=== PATIENT | male | born 1960 | race Caucasian/White ===

== ENCOUNTER 2019-10-18 15:05 | Emergency (ER) | payer SELFPAY ==
[~2019-10-18] VITALS: Ht 170.2 cm; Wt 83.6 kg
[2019-10-18 15:25] VITALS: BP 133/79; TEMP 98.7
[2019-10-18] MEDS ORDERED: TAMIFLU 75MG75 MG PO (16:19)
[2019-10-18 16:20] VITALS: PULSE 76
== END 2019-10-18 16:25 | disposition home or self-care (01) ==
LOC: COL.ER 15:05
DX: J09.X2 Influenza due to identified novel influenza A virus with other respiratory manifestations (principal); I10 Essential (primary) hypertension

== ENCOUNTER 2020-05-16 11:06 | Emergency (ER) | payer SELFPAY ==
[~2020-05-16] VITALS: Ht 177.8 cm; Wt 81.8 kg
[~2020-05-16 11:06] MED LIST: TAMIFLU 75MG75 MG PO
[2020-05-16 11:08] VITALS: TEMP 98
[2020-05-16 11:34] LABS: BASO # 0.1 (0.0-0.2); EOS # 0.2 (0.0-0.7); EOS % 2.6 % (0-4.0); GRAN # 3.5 (1.4-6.5); GRAN % 48.5 % (42.2-75.2); HEMATOCRIT 38.2 % (42.0-52.0); HEMOGLOBIN 12.8 g/dl (13.5-18.0); LYMPH # 2.9 (1.2-3.4); LYMPH % 39.7 % (20.0-51.0); MEAN CELL VOLUME 93 fl (80.0-100.0); MEAN CORPUSCULAR HEMOGLOBIN 31 pg (27.0-31.0); MEAN CORPUSCULAR HGB CONC 34 g/dl (33.0-37.0); MEAN PLATELET VOLUME 9.8 fl (7.4-10.4); MONO # 0.6 (0.1-0.6); MONO % 7.8 % (1.7-9.3); PLATELET COUNT 213 K/mm3 (130-400); RED BLOOD COUNT 4.09 M/mm3 (4.20-5.60); REDCELL DISTRIBUTION WIDTH-CV 13.4 % (11.5-14.5)
[2020-05-16 11:40] LABS: PROTHROMBIN TIME 10.9 SECONDS (9.7-12.8)
[2020-05-16 11:42] LABS: PARTIAL THROMBOPLASTIN TIME 27.6 SECONDS (26.0-37.0)
[2020-05-16 11:51] LABS: ALBUMIN 3.8 gm/dL (3.5-5.0); BILIRUBIN,TOTAL 0.3 mg/dL (0.0-1.0); CALCIUM 7.6 mg/dL (8.4-10.2); CREATININE, serum 0.72 (0.66-1.25); MAGNESIUM 2.3 mg/dL (1.6-2.3); POTASSIUM 3.5 mmol/L (3.4-5.0); TOTAL PROTEIN 6.7 gm/dL (6.4-8.2)
[2020-05-16 19:06] VITALS: BP 164/86; PULSE 68
== END 2020-05-16 23:33 | disposition home or self-care (01) ==
LOC: COL.ER 11:06
PROVIDERS: Emergency Medicine
DX: S02.2XXA Fracture of nasal bones, initial encounter for closed fracture (principal); S01.81XA Laceration without foreign body of other part of head, initial encounter; F10.129 Alcohol abuse with intoxication, unspecified; R40.2420 Glasgow coma scale score 9-12, unspecified time; W18.12XA Fall from or off toilet with subsequent striking against object, initial encounter; Y92.002 Bathroom of unspecified non-institutional (private) residence as the place of occurrence of the external cause
CPT/HCPCS: J2405; J3411; J3475; J7030

== ENCOUNTER 2020-11-02 16:48 | Observation (INO) | payer BC ==
[~2020-11-02] VITALS: Ht 170.2 cm; Wt 71.4 kg
[2020-11-02 17:40] LABS: COLLECTION METHOD IN
[2020-11-02 17:46] LABS: BASO # 0.1 (0.0-0.2); EOS # 0.3 (0.0-0.7); EOS % 2.5 % (0-4.0); GRAN # 5.9 (1.4-6.5); GRAN % 57.8 % (42.2-75.2); HEMATOCRIT 40.1 % (42.0-52.0); HEMOGLOBIN 13.9 g/dl (13.5-18.0); LYMPH # 2.9 (1.2-3.4); LYMPH % 28.5 % (20.0-51.0); MEAN CELL VOLUME 91 fl (80.0-100.0); MEAN CORPUSCULAR HEMOGLOBIN 32 pg (27.0-31.0); MEAN CORPUSCULAR HGB CONC 35 g/dl (33.0-37.0); MEAN PLATELET VOLUME 9.3 fl (7.4-10.4); MONO % 9.8 % (1.7-9.3); PLATELET COUNT 241 K/mm3 (130-400); RED BLOOD COUNT 4.39 M/mm3 (4.20-5.60); REDCELL DISTRIBUTION WIDTH-CV 12.4 % (11.5-14.5)
[2020-11-02 17:48] LABS: PROTHROMBIN TIME 11.7 SECONDS (9.7-12.8)
[2020-11-02 17:51] LABS: PARTIAL THROMBOPLASTIN TIME 29.7 SECONDS (26.0-37.0)
[2020-11-02 17:53] LABS: PH 5 (5-8); SQUAMOUS EPITHELIAL None Seen /hpf; URINE APPEARANCE Clear; URINE BACTERIA None Seen /hpf; URINE BILIRUBIN Negative (NEGATIVE); URINE BLOOD 2+ (NEGATIVE); URINE COLOR Yellow; URINE GLUCOSE Negative (NEGATIVE); URINE KETONE Negative (NEGATIVE); URINE LEUKOCYTE ESTERASE Negative (NEGATIVE); URINE NITRATE Negative (NEGATIVE); URINE PROTEIN(semi-quant) Negative (NEGATIVE); URINE RBC 0-2 /hpf; URINE UROBILINOGEN Negative (NEGATIVE)
[2020-11-02 17:53] LABS: ALANINE AMINOTRANSFERASE 24 U/L (4-49); ALBUMIN 3.7 gm/dL (3.5-5.0); ALKALINE PHOSPHATASE 73 U/L (50-136); ANION GAP 8 mmol/L (7-16); AST,SGOT 30 U/L (15-37); BILIRUBIN,TOTAL 0.3 mg/dL (0.0-1.0); BLOOD UREA NITROGEN 15 mg/dL (9-20); CALCIUM 8.5 mg/dL (8.4-10.2); CARBON DIOXIDE 30 mmol/L (22-30); CHLORIDE 103 mmol/L (98-107); CREATININE, serum 0.93 (0.66-1.25); GLUCOSE 95 mg/dL (74-106); POTASSIUM 3.4 mmol/L (3.4-5.0); SODIUM 141 mmol/L (137-145); TOTAL PROTEIN 6.2 gm/dL (6.4-8.2)
[2020-11-02 18:03] LABS: ALCOHOL(ethanol),MEDICAL 417 mg/dL
[2020-11-02 18:16] LABS: TROPONIN-I < 0.012 ng/mL (0.000-0.035)
[2020-11-02 18:27] LABS: TRICYCLIC ANTIDEPRESS URINE NEGATIVE
[2020-11-02 20:49] VITALS: BP 114/64; PULSE 68; TEMP 97.6
--- NOTE | 2020-11-02 20:52 | NUR ---
Pt. laying in bed at this time. Pt. is A&OX3. Pt. does have slurred speech but does follow commands. Pt. denies pain or other needs, call light within reach.
[2020-11-02 23:29] VITALS: BP 119/63; PULSE 96; TEMP 97.3
[2020-11-03 04:00] VITALS: BP 130/54; PULSE 51; TEMP 98.1
[2020-11-03 06:57] LABS: BASO # 0.1 (0.0-0.2); BASO % 0.8 % (0.0-2.0); EOS # 0.1 (0.0-0.7); EOS % 1.8 % (0-4.0); GRAN # 3.9 (1.4-6.5); GRAN % 52.7 % (42.2-75.2); HEMATOCRIT 41.3 % (42.0-52.0); HEMOGLOBIN 13.7 g/dl (13.5-18.0); LYMPH # 2.8 (1.2-3.4); LYMPH % 37.7 % (20.0-51.0); MEAN CORPUSCULAR HEMOGLOBIN 32 pg (27.0-31.0); MEAN CORPUSCULAR HGB CONC 33 g/dl (33.0-37.0); MEAN PLATELET VOLUME 9.3 fl (7.4-10.4); MONO # 0.5 (0.1-0.6); MONO % 6.6 % (1.7-9.3); PLATELET COUNT 200 K/mm3 (130-400); REDCELL DISTRIBUTION WIDTH-CV 12.8 % (11.5-14.5)
[2020-11-03 07:04] LABS: MEAN CELL VOLUME 96 fl (80.0-100.0)
[2020-11-03 07:07] LABS: ALBUMIN 3.4 gm/dL (3.5-5.0); BILIRUBIN,TOTAL 0.3 mg/dL (0.0-1.0); CALCIUM 7.4 mg/dL (8.4-10.2); CREATININE, serum 0.83 (0.66-1.25); MAGNESIUM 2.2 mg/dL (1.6-2.3); POTASSIUM 4.2 mmol/L (3.4-5.0); TOTAL PROTEIN 5.7 gm/dL (6.4-8.2)
[2020-11-03 07:16] VITALS: BP 101/53; PULSE 67; TEMP 98
--- NOTE | 2020-11-03 08:00 | NUR ---
PATIENT IS A&O AND STATES HE FEELS MORE LIKE HIMESLF. VSS WITH TELE INPLACE. NEURO CHECK WNL. HEAD TO TOE ASSESSMENT WNL. NPO. GUTIERREZ TO DD WITH MOD AMOUNTS OF CLEAR YELLOW URINE. SEIZURE PRECAUTIONS INPLACE. PATIENT HAS HX OF ETOH. PATIENT STATES "I MADE A MISTAKE, WE ALL MAKE MISTAKES SOMETIMES".
--- NOTE | 2020-11-03 10:00 | NUR ---
HOSPITALIST TEAM ROUNDING. DIET ADVANCED, WILL SEE HOW PATIENT DOES
--- NOTE | 2020-11-03 10:11 | NUR ---
DREW attended clinical rounds. The patient is to tentatively d/c today after he eats and drinks. DREW then met with the patient to discuss discharge plan. The patient lives in [place] with his girlfriend, Fiona (ph#[phone]). He reports independence with ADLs and does not have any DME. The patient's PCP is Dr. Pedro Gill and he receives his medications from [facility]. He reports no difficulties obtaining his meds. The patient does not have a DPOA-HC, but he was interested in obtaining a form. DREW provided. The patient states that he is seperated from his , but they are not legally . He has two children. DREW informed the patient that his is his legal next of kin if he does not complete a DPOA-HC. The patient verbalized understanding. The patient plans to return home with his girlfriend upon discharge. DREW addressed the patient's alcohol use. He states that his last drink was yesterday. The patient states that he sees a therapist at [facility] for his alcohol use and he would like to continue seeing them upon discharge. He states his next appointment is January 13. DREW offered the patient a list of other outpatient alcohol resources in the area. The patient was interested and DREW provided. No additional needs at this time.
--- NOTE | 2020-11-03 10:22 | NUR ---
Initial visit; Patient thanked [employer] for looking in on him and offering encouragement and God's blessings.
--- NOTE | 2020-11-03 10:50 | NUR ---
DC'D GUTIERREZ PER ORDERS. GUTIERREZ CATH TIP INTACT AND PATIENT TOLERATED WELL. NOTED 450CC OF CLEAR YELLOW URINE. PATIENT SHOULD DISCHARGE HOME AFTER HE VOIDS AND TOLERATES PO. SEE DISCHARGE ORDERS.
[2020-11-03 11:15] VITALS: BP 148/75; PULSE 86; TEMP 98.4
--- NOTE | 2020-11-03 16:00 | NUR ---
PATIENT MEET DISCHARGE CRITERIA. GAVE DISCHARGE INSTRUCTIONS AND DISCUSSED F/U APT. ANSWERED QUESTIONS/CONERNS. DC'D TELE. DC'D IV SITE AND COVERED WITH [employer]. PATIENT CALLED [facility] AND IS NOW DISCHARGED.
== END 2020-11-03 16:00 | disposition home or self-care (01) ==
LOC: COL.ER 16:48 → SURG 18:52 → JCC 11-03 09:03 → SURG 11-03 09:03
PROVIDERS: Family Medicine; Student in an Organized Health Care Education/Training Program; ADMIT Hospitalist
DX: G93.40 Encephalopathy, unspecified (principal); F10.229 Alcohol dependence with intoxication, unspecified; Z86.73 Personal history of transient ischemic attack (TIA), and cerebral infarction without residual deficits; I95.9 Hypotension, unspecified; F15.90 Other stimulant use, unspecified, uncomplicated; Z85.828 Personal history of other malignant neoplasm of skin; Z85.47 Personal history of malignant neoplasm of testis
CPT/HCPCS: 99223-AI; J1650; J3411; J7030; Q9967